=== PATIENT | female | born 1975 | race African-American/Black ===

== ENCOUNTER 2018-12-28 22:57 | Inpatient (IN) | payer OTHER ==
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
[2018-12-29] MEDS ORDERED: MAGNESIUM CITRATE 300 ML BOTTLE PO PRN (02:58)
[2018-12-29] MEDS ORDERED: MAG HYDROX/AL HYDROX/SIMETH 30 ML UNIT-DOSE CUP PO PRN (02:58)
[2018-12-29] MEDS ORDERED: MENTHOL/PHENOL 1 EACH UD MM PRN (02:58)
[2018-12-29] MEDS ORDERED: chlordiazePOXIDE HCL 25 MG CAPSULE PO ONE (02:58)
[2018-12-29] MEDS ORDERED: BISMUTH SUBSALICYLATE 524 MG/30 ML UD PO PRN (02:58)
[2018-12-29] MEDS ORDERED: ACETAMINOPHEN 325 MG TABLET (FP) PO PRN (02:58)
[2018-12-29] MEDS ORDERED: hydrOXYzine PAMOATE 25 MG CAPSULE (FP) PO PRN (02:58)
[2018-12-29] MEDS ORDERED: MAGNESIUM HYDROX 2400MG/30ML ORAL SUSPENSION 30 ML CUP PO PRN (02:58)
[2018-12-29] MEDS ORDERED: ONDANSETRON 8 MG TABLET (FP) PO PRN (03:23)
[2018-12-29] MEDS: chlordiazePOXIDE HCL 25 MG CAPSULE PO SCH ×3 (04:29→22:19)
[2018-12-29] MEDS: GABAPENTIN 100 MG CAPSULE (FP) PO SCH ×3 (06:18→22:18)
[2018-12-29] MEDS ORDERED: LEVETIRACETAM PO SCH (10:00)
[2018-12-29] MEDS ORDERED: ASCORBIC ACID PO SCH (10:00)
[2018-12-29] MEDS ORDERED: [UNRECOGNIZED DRUG - MIXTURE] TP SCH ×2 (10:00)
[2018-12-29 10:13] LABS: HEMATOCRIT 32.9 % (32.4-45.2); HEMOGLOBIN 11.2 GM/dL (10.7-15.3); MCH 33.6 pg (25.7-33.7); MCHC 33.9 g/dl (32.0-36.0); MEAN CELL VOLUME 99.1 fl (80-96); MEAN PLT VOLUME 7.6 fl (7.5-11.1); PLATELET COUNT 320 K/MM3 (134-434); RBC 3.32 M/mm3 (3.60-5.2); RDW 15.6 % (11.6-15.6); WHITE BLOOD COUNT 4.1 K/mm3 (4.0-10.0)
[2018-12-29 10:15] LABS: ALBUMIN 3.2 g/dl (3.4-5.0); ALK PHOS 67 U/L (45-117); ANION GAP 9 MMOL/L (8-16); BILIRUBIN,TOTAL 0.2 mg/dL (0.2-1); BLOOD UREA NITROGEN 6 mg/dL (7-18); CALCIUM 8.8 mg/dL (8.5-10.1); CHLORIDE 108 mmol/L (98-107); CO2 25 mmol/L (21-32); CREATININE 0.7 mg/dL (0.55-1.3); GLUCOSE,RANDOM 84 mg/dL (74-106); POTASSIUM 3.9 mmol/L (3.5-5.1); SGOT/AST 16 U/L (15-37); SGPT/ALT 14 U/L (13-61); SODIUM 142 mmol/L (136-145); TOT PROT 6.6 g/dl (6.4-8.2)
[2018-12-29] MEDS: levETIRAcetam 250 MG TABLET (FP) PO SCH ×2 (10:24→22:18)
[2018-12-29] MEDS: PRENATAL VITAMINS W/ FOLIC ACID TABLET (FP) PO SCH (10:24)
[2018-12-29] MEDS: NICOTINE 21 MG/24 HOURS TOPICAL PATCH TD SCH (10:25)
[2018-12-29] MEDS: chlordiazePOXIDE HCL 10 MG CAPSULE PO PRN ×2 (10:28→17:29)
[2018-12-29] MEDS: ACETAMINOPHEN 325 MG TABLET (FP) PO PRN ×2 (10:32→17:29)
[2018-12-29] MEDS: [UNRECOGNIZED DRUG - MIXTURE] TP SCH (10:57)
[2018-12-29] MEDS: ASCORBIC ACID 500 MG TABLET (FP) PO SCH (10:58)
[2018-12-29] MEDS: LIDOCAINE 5% TOPICAL PATCH TP SCH (10:59)
--- NOTE | 2018-12-29 12:38 | EKG ---
Test Reason : Blood Pressure : / mmHG Vent. Rate : 067 BPM Atrial Rate : 067 BPM P-R Int : 154 ms QRS Dur : 078 ms QT Int : 416 ms P-R-T Axes : 067 029 042 degrees QTc Int : 439 ms NORMAL SINUS RHYTHM WITH SINUS ARRHYTHMIA NORMAL ECG Confirmed by MD DEBORAH, FLORA ([id number]) on 12/29/2018 12:38:52 PM Referred By: DAISY BROWNING Confirmed By:FLORA CABRERA MD
[2018-12-29] MEDS: ONDANSETRON *ODT* 4 MG TABLET SL PRN ×2 (13:07→17:29)
--- NOTE | 2018-12-29 17:22 | PN ---
S CIWA - CIWA Score Nausea/Vomitin Muscle Tremors: None Anxiety: 4-Mod. Anxious/Guarded Agitation: 2 Paroxysmal Sweats: 4-Forehead w/Sweat Beads Orientation: 0-Oriented Tacttile Disturbances: 2-Mild Itch/Numbness/Burn Auditory Disturbances: 0-None Visual Disturbances: 2-Mild Sensitivity Headache: 0-None Present CIWA-Ar Total Score: 17 BHS Progress Note (SOAP) Subjective: Anxious, Nausea, Interrupted Sleep, Body Aches. Objective: PATIENT A & O X 3, OBSERVED AMBULATING ON UNIT UNASSISTED. IN NO ACUTE DISTRESS. 12/29/18 17:19 Vital Signs Temperature 98.1 F 12/29/18 13:28 Pulse Rate 80 12/29/18 13:28 Respiratory Rate 18 12/29/18 13:28 Blood Pressure 99/66 12/29/18 13:28 O2 Sat by Pulse Oximetry (%) Laboratory Tests 12/29/18 12/29/18 12/29/18 01:17 07:00 07:00 WBC 4.1 RBC 3.32 L Hgb 11.2 Hct 32.9 MCV 99.1 H MCH 33.6 MCHC 33.9 RDW 15.6 Plt Count 320 MPV 7.6 Sodium 142 Potassium 3.9 Chloride 108 H Carbon Dioxide 25 Anion Gap 9 BUN 6 L Creatinine 0.7 Creat Clearance w eGFR 91.76 Random Glucose 84 Calcium 8.8 Total Bilirubin 0.2 AST 16 ALT 14 Alkaline Phosphatase 67 Total Protein 6.6 Albumin 3.2 L POC Urine HCG, Qual Negative RPR Titer 12/29/18 07:00 WBC RBC Hgb Hct MCV MCH MCHC RDW Plt Count MPV Sodium Potassium Chloride Carbon Dioxide Anion Gap BUN Creatinine Creat Clearance w eGFR Random Glucose Calcium Total Bilirubin AST ALT Alkaline Phosphatase Total Protein Albumin POC Urine HCG, Qual RPR Titer Nonreactive LABS NOTED. Assessment: 12/29/18 17:20 WITHDRAWAL SYMPTOMS. Plan: CONTINUE DETOX. INCREASE DAILY PO FLUID / WATER INTAKE. PRN ZOFRAN SL RECOMMEDNED FOR NAUSEA. PRN TRAZODONE, 50 MG PO FOR INSOMNIA (PATIENT REPORTS POOR EFFECT FROM MELATONIN ).
[2018-12-29] MEDS: LIDOCAINE PATCH REMOVAL MC SCH (22:17)
[2018-12-29] MEDS: MINERAL OIL/PETROLAT/WATER TOPICAL CREAM 454 GM JAR TP PRN (22:18)
[2018-12-29] MEDS: THIAMINE HCL 100 MG TABLET (FP) PO SCH (22:19)
[2018-12-29] MEDS: traZODone HCL 50 MG TABLET (FP) PO PRN (22:21)
[2018-12-30] MEDS: GABAPENTIN 100 MG CAPSULE (FP) PO SCH ×3 (05:50→22:28)
[2018-12-30] MEDS: ACETAMINOPHEN 325 MG TABLET (FP) PO PRN ×3 (05:50→19:42)
[2018-12-30] MEDS: chlordiazePOXIDE 5 MG CAPSULE PO SCH ×3 (05:50→22:28)
[2018-12-30] MEDS: [UNRECOGNIZED DRUG - MIXTURE] TP SCH (10:16)
[2018-12-30] MEDS: PRENATAL VITAMINS W/ FOLIC ACID TABLET (FP) PO SCH (10:17)
[2018-12-30] MEDS: levETIRAcetam 250 MG TABLET (FP) PO SCH ×2 (10:17→22:27)
[2018-12-30] MEDS: LIDOCAINE 5% TOPICAL PATCH TP SCH (10:17)
[2018-12-30] MEDS: ASCORBIC ACID 500 MG TABLET (FP) PO SCH (10:18)
[2018-12-30] MEDS: NICOTINE 21 MG/24 HOURS TOPICAL PATCH TD SCH (10:18)
[2018-12-30] MEDS: chlordiazePOXIDE HCL 10 MG CAPSULE PO PRN (10:27)
--- NOTE | 2018-12-30 11:06 | PN ---
[facility] CIWA - CIWA Score Nausea/Vomitin-Mild Nausea/No Vomiting Muscle Tremors: 3 Anxiety: 4-Mod. Anxious/Guarded Agitation: 3 Paroxysmal Sweats: 1-Minimal Palms Moist Orientation: 1-Uncertain about Date Tacttile Disturbances: 0-None Auditory Disturbances: 0-None Visual Disturbances: 0-None Headache: 1-Very Mild CIWA-Ar Total Score: 14 S Progress Note (SOAP) Subjective: anxious report compliance with keppra medications Objective: 12/30/18 11:06 Vital Signs Temperature 97.6 F 12/30/18 09:46 Pulse Rate 106 H 12/30/18 09:46 Respiratory Rate 20 12/30/18 09:46 Blood Pressure 119/67 12/30/18 09:46 O2 Sat by Pulse Oximetry (%) Laboratory Last Values WBC 4.1 K/mm3 (4.0-10.0) 12/29/18 07:00 RBC 3.32 M/mm3 (3.60-5.2) L 12/29/18 07:00 Hgb 11.2 GM/dL (10.7-15.3) 12/29/18 07:00 Hct 32.9 % (32.4-45.2) 12/29/18 07:00 MCV 99.1 fl (80-96) H 12/29/18 07:00 MCH 33.6 pg (25.7-33.7) 12/29/18 07:00 MCHC 33.9 g/dl (32.0-36.0) 12/29/18 07:00 RDW 15.6 % (11.6-15.6) 12/29/18 07:00 Plt Count 320 K/MM3 (134-434) 12/29/18 07:00 MPV 7.6 fl (7.5-11.1) 12/29/18 07:00 Sodium 142 mmol/L (136-145) 12/29/18 07:00 Potassium 3.9 mmol/L (3.5-5.1) 12/29/18 07:00 Chloride 108 mmol/L (98-107) H 12/29/18 07:00 Carbon Dioxide 25 mmol/L (21-32) 12/29/18 07:00 Anion Gap 9 MMOL/L (8-16) 12/29/18 07:00 BUN 6 mg/dL (7-18) L 12/29/18 07:00 Creatinine 0.7 mg/dL (0.55-1.3) 12/29/18 07:00 Creat Clearance w eGFR 91.76 (>60) 12/29/18 07:00 Random Glucose 84 mg/dL (74-106) 12/29/18 07:00 Calcium 8.8 mg/dL (8.5-10.1) 12/29/18 07:00 Total Bilirubin 0.2 mg/dL (0.2-1) 12/29/18 07:00 AST 16 U/L (15-37) 12/29/18 07:00 ALT 14 U/L (13-61) 12/29/18 07:00 Alkaline Phosphatase 67 U/L (45-117) 12/29/18 07:00 Total Protein 6.6 g/dl (6.4-8.2) 12/29/18 07:00 Albumin 3.2 g/dl (3.4-5.0) L 12/29/18 07:00 POC Urine HCG, Qual Negative 12/29/18 01:17 RPR Titer Nonreactive (NONREACTIVE) 12/29/18 07:00 lab noted Assessment: 12/30/18 11:06 alcohol withdrawal sx Plan: continue detox
[2018-12-30] MEDS: NICOTINE POLACRILEX 2 MG GUM BUC PRN ×2 (13:44→19:43)
[2018-12-30] MEDS: ONDANSETRON *ODT* 4 MG TABLET SL PRN (16:13)
[2018-12-30] MEDS: MELATONIN 5 MG TABLETS PO PRN (22:27)
[2018-12-30] MEDS: THIAMINE HCL 100 MG TABLET (FP) PO SCH (22:28)
[2018-12-30] MEDS: traZODone HCL 50 MG TABLET (FP) PO PRN (22:29)
[2018-12-30] MEDS: LIDOCAINE PATCH REMOVAL MC SCH (23:09)
[2018-12-31] MEDS: chlordiazePOXIDE HCL 10 MG CAPSULE PO SCH ×3 (05:24→22:15)
[2018-12-31] MEDS: GABAPENTIN 100 MG CAPSULE (FP) PO SCH ×3 (05:24→22:16)
[2018-12-31] MEDS: ACETAMINOPHEN 325 MG TABLET (FP) PO PRN ×4 (05:24→22:18)
[2018-12-31] MEDS: levETIRAcetam 250 MG TABLET (FP) PO SCH ×2 (10:29→22:15)
[2018-12-31] MEDS: [UNRECOGNIZED DRUG - MIXTURE] TP SCH (10:29)
[2018-12-31] MEDS: ASCORBIC ACID 500 MG TABLET (FP) PO SCH (10:29)
[2018-12-31] MEDS: PRENATAL VITAMINS W/ FOLIC ACID TABLET (FP) PO SCH (10:29)
[2018-12-31] MEDS: NICOTINE 21 MG/24 HOURS TOPICAL PATCH TD SCH (10:30)
[2018-12-31] MEDS: LIDOCAINE 5% TOPICAL PATCH TP SCH (10:30)
[2018-12-31] MEDS: chlordiazePOXIDE HCL 10 MG CAPSULE PO PRN ×2 (10:30→15:47)
[2018-12-31] MEDS: MINERAL OIL/PETROLAT/WATER TOPICAL CREAM 454 GM JAR TP PRN (10:32)
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
[2018-12-31] MEDS: ONDANSETRON *ODT* 4 MG TABLET SL PRN (13:10)
[2018-12-31] MEDS: NICOTINE POLACRILEX 2 MG GUM BUC PRN (17:48)
[2018-12-31] MEDS: THIAMINE HCL 100 MG TABLET (FP) PO SCH (22:15)
[2018-12-31] MEDS: MELATONIN 5 MG TABLETS PO PRN (22:16)
[2018-12-31] MEDS: traZODone HCL 50 MG TABLET (FP) PO PRN (22:17)
[2018-12-31] MEDS: LIDOCAINE PATCH REMOVAL MC SCH (22:46)
[2019-01-01] MEDS: GABAPENTIN 100 MG CAPSULE (FP) PO SCH ×2 (05:31→13:22)
[2019-01-01] MEDS: chlordiazePOXIDE HCL 10 MG CAPSULE PO SCH (05:31)
[2019-01-01 09:18] VITALS: BP 90/60; PULSE 93; TEMP 97.4
[2019-01-01] MEDS: PRENATAL VITAMINS W/ FOLIC ACID TABLET (FP) PO SCH (10:42)
[2019-01-01] MEDS: ASCORBIC ACID 500 MG TABLET (FP) PO SCH (10:42)
[2019-01-01] MEDS: MINERAL OIL/PETROLAT/WATER TOPICAL CREAM 454 GM JAR TP PRN (10:42)
[2019-01-01] MEDS: levETIRAcetam 250 MG TABLET (FP) PO SCH (10:42)
[2019-01-01] MEDS: LIDOCAINE 5% TOPICAL PATCH TP SCH (10:43)
[2019-01-01] MEDS: NICOTINE 21 MG/24 HOURS TOPICAL PATCH TD SCH (10:43)
[2019-01-01] MEDS: [UNRECOGNIZED DRUG - MIXTURE] TP SCH (10:43)
[2019-01-01] MEDS: ACETAMINOPHEN 325 MG TABLET (FP) PO PRN (10:58)
--- NOTE | 2019-01-01 11:01 | DS ---
[facility] Detox Discharge Summary Admission Date: 12/29/18 Discharge Date: 01/01/19 - History Present History: Alcohol Dependence Pertinent Past History: Pt admitted for alcohol detox. Did well with detox protocol. Going to for rehab - Physical Exam Results Vital Signs: Vital Signs Temperature 97.4 F L 01/01/19 09:17 Pulse Rate 93 H 01/01/19 09:17 Respiratory Rate 18 01/01/19 09:17 Blood Pressure 90/60 01/01/19 09:17 O2 Sat by Pulse Oximetry (%) - Treatment Hospital Course: Detox Protocol Followed, Detoxed Safely, Responded well, Discharged Condition Good, Rehab Referral Accepted - Medication Discharge Medications: Ambulatory Orders Allantoin/Onion/Peg/Water [Mederma Gel] 1 5ml TP DAILY 12/29/18 Ascorbic Acid [Vitamin C] 1 tab PO DAILY 12/29/18 Gabapentin 1 cap PO TID 12/29/18 Ondansetron HCl [Zofran] 8 mg PO Q12H PRN 12/29/18 levETIRAcetam [Keppra -] 750 tab PO BID 12/29/18 levETIRAcetam [Keppra -] 750 mg PO BID #60 tablet 12/31/18 - AMA Did Patient Leave Against Medical Advice: No
== END 2019-01-01 13:27 | disposition other institution (70) | DRG 775 ==
LOC: YASAS 22:57 → Y3N 12-29 01:58
PROVIDERS: ADMIT Surgery; ATTEND Surgery
PROC: HZ2ZZZZ Detoxification Services for Substance Abuse Treatment (ICD-10-PCS; principal; 2018-12-29)
DX: F10.230 Alcohol dependence with withdrawal, uncomplicated (principal); F17.210 Nicotine dependence, cigarettes, uncomplicated; D64.9 Anemia, unspecified; L30.9 Dermatitis, unspecified; G40.909 Epilepsy, unspecified, not intractable, without status epilepticus; R60.0 Localized edema; T24.302D Burn of third degree of unspecified site of left lower limb, except ankle and foot, subsequent encounter; X08.8XXD Exposure to other specified smoke, fire and flames, subsequent encounter; Z94.5 Skin transplant status
CPT/HCPCS: 36415; 80053; 81025; 85027; 86593; 93005; 93010; Q0162

== ENCOUNTER 2019-01-01 13:52 | Inpatient (IN) | payer OTHER ==
[2019-01-01] MEDS ORDERED: IBUPROFEN 400 MG TABLET (FP) PO PRN (14:06)
[2019-01-01] MEDS ORDERED: MAG HYDROX/AL HYDROX/SIMETH 30 ML UNIT-DOSE CUP PO PRN (14:06)
[2019-01-01] MEDS ORDERED: MENTHOL/PHENOL 1 EACH UD MM PRN (14:06)
[2019-01-01] MEDS ORDERED: MAGNESIUM HYDROX 2400MG/30ML ORAL SUSPENSION 30 ML CUP PO PRN (14:06)
[2019-01-01] MEDS ORDERED: LOPERAMIDE HCL 2 MG CAPSULE PO PRN (14:06)
[2019-01-01] MEDS ORDERED: MAGNESIUM CITRATE 300 ML BOTTLE PO PRN (14:06)
--- NOTE | 2019-01-01 14:06 | HP ---
[facility] Re[facility] Assess/Revision - Admission History Admitted to Rehab from[facility] - Findings Detox History & Physical reviewed: Yes Concur with findings: Yes Inpatient Rehab Admission - Rehab Decision to Admit Inpatient rehab admission?: Yes - Initial Determination Are CD services needed?: Yes Free of communicable disease: Yes Not in need of hospitalization: Yes - Rehab Admission Criteria Previous failed treatment: Yes Poor recovery environment: Yes Comorbidities: Yes Lacks judgement: Yes Patient is meeting Inpatient Rehab admission criteria:: Yes
[2019-01-01] MEDS ORDERED: ONDANSETRON *ODT* 4 MG TABLET SL PRN (14:07)
[2019-01-01] MEDS ORDERED: COLLOIDAL OATMEAL 1 BAR EACH TP PRN (15:55)
[2019-01-01] MEDS: THIAMINE HCL 100 MG TABLET (FP) PO SCH (21:39)
[2019-01-01] MEDS: traZODone HCL 50 MG TABLET (FP) PO SCH (21:40)
[2019-01-01] MEDS: GABAPENTIN 100 MG CAPSULE (FP) PO SCH (21:40)
[2019-01-01] MEDS: hydrOXYzine PAMOATE 25 MG CAPSULE (FP) PO PRN (21:40)
[2019-01-01] MEDS: [UNRECOGNIZED DRUG - OTHER] PO SCH (21:41)
[2019-01-01] MEDS: SODIUM CHLORIDE 1000 MG PO SCH (21:41)
[2019-01-01] MEDS: LIDOCAINE PATCH REMOVAL MC SCH (21:41)
[2019-01-01] MEDS: ACETAMINOPHEN 325 MG TABLET (FP) PO PRN (21:42)
[2019-01-01] MEDS ORDERED: GABAPENTIN 100 MG CAPSULE (FP) PO SCH (22:00)
[2019-01-01] MEDS ORDERED: levETIRAcetam 250 MG TABLET (FP) PO SCH (22:00)
[2019-01-02] MEDS: GABAPENTIN 100 MG CAPSULE (FP) PO SCH ×3 (06:09→21:42)
[2019-01-02] MEDS: hydrOXYzine PAMOATE 25 MG CAPSULE (FP) PO PRN ×3 (06:10→14:55)
[2019-01-02] MEDS: ACETAMINOPHEN 325 MG TABLET (FP) PO PRN ×4 (06:11→21:42)
[2019-01-02] MEDS ORDERED: PT OWN MED DRAWER 7, Y5N ONE (08:51)
[2019-01-02] MEDS ORDERED: ASCORBIC ACID PO SCH (10:00)
[2019-01-02] MEDS: SODIUM CHLORIDE 1000 MG PO SCH (10:13)
[2019-01-02] MEDS: [UNRECOGNIZED DRUG - OTHER] PO SCH (10:13)
[2019-01-02] MEDS: PRENATAL VITAMINS W/ FOLIC ACID TABLET (FP) PO SCH (10:13)
[2019-01-02] MEDS: ASCORBIC ACID 500 MG TABLET (FP) PO SCH (10:13)
[2019-01-02] MEDS: [UNRECOGNIZED DRUG - MIXTURE] TP SCH (10:15)
[2019-01-02] MEDS: LIDOCAINE 5% TOPICAL PATCH TP SCH (10:15)
[2019-01-02] MEDS: NICOTINE POLACRILEX 2 MG GUM BUC PRN (14:57)
[2019-01-02] MEDS: traZODone HCL 50 MG TABLET (FP) PO SCH (21:41)
[2019-01-02] MEDS: THIAMINE HCL 100 MG TABLET (FP) PO SCH (21:41)
[2019-01-02] MEDS: MELATONIN 5 MG TABLETS PO PRN (21:41)
[2019-01-02] MEDS: LIDOCAINE PATCH REMOVAL MC SCH (21:42)
[2019-01-03] MEDS: GABAPENTIN 100 MG CAPSULE (FP) PO SCH ×3 (06:41→21:24)
[2019-01-03] MEDS: hydrOXYzine PAMOATE 25 MG CAPSULE (FP) PO PRN ×4 (06:43→21:24)
[2019-01-03] MEDS: ACETAMINOPHEN 325 MG TABLET (FP) PO PRN ×2 (06:43→16:38)
[2019-01-03] MEDS: ASCORBIC ACID 500 MG TABLET (FP) PO SCH (09:56)
[2019-01-03] MEDS: [UNRECOGNIZED DRUG - MIXTURE] TP SCH (09:56)
[2019-01-03] MEDS: PRENATAL VITAMINS W/ FOLIC ACID TABLET (FP) PO SCH (09:56)
[2019-01-03] MEDS: LIDOCAINE 5% TOPICAL PATCH TP SCH (09:56)
[2019-01-03] MEDS: [UNRECOGNIZED DRUG - OTHER] PO SCH (09:57)
[2019-01-03] MEDS: SODIUM CHLORIDE 1000 MG PO SCH (09:57)
[2019-01-03] MEDS: NICOTINE POLACRILEX 2 MG GUM BUC PRN ×3 (09:59→21:25)
[2019-01-03] MEDS: traZODone HCL 50 MG TABLET (FP) PO SCH (21:23)
[2019-01-03] MEDS: MELATONIN 5 MG TABLETS PO PRN (21:23)
[2019-01-03] MEDS: THIAMINE HCL 100 MG TABLET (FP) PO SCH (21:25)
[2019-01-03] MEDS: LIDOCAINE PATCH REMOVAL MC SCH (21:45)
[2019-01-04] MEDS: ACETAMINOPHEN 325 MG TABLET (FP) PO PRN ×2 (06:12→15:15)
[2019-01-04] MEDS: GABAPENTIN 100 MG CAPSULE (FP) PO SCH ×3 (06:12→21:35)
[2019-01-04] MEDS: hydrOXYzine PAMOATE 25 MG CAPSULE (FP) PO PRN ×3 (06:12→21:35)
[2019-01-04] MEDS: PRENATAL VITAMINS W/ FOLIC ACID TABLET (FP) PO SCH (09:53)
[2019-01-04] MEDS: SODIUM CHLORIDE 1000 MG PO SCH (09:53)
[2019-01-04] MEDS: [UNRECOGNIZED DRUG - OTHER] PO SCH (09:53)
[2019-01-04] MEDS: [UNRECOGNIZED DRUG - MIXTURE] TP SCH (09:54)
[2019-01-04] MEDS: LIDOCAINE 5% TOPICAL PATCH TP SCH ×2 (09:55→12:05)
[2019-01-04] MEDS: ASCORBIC ACID 500 MG TABLET (FP) PO SCH (09:56)
[2019-01-04] MEDS ORDERED: PT OWN MED DRAWER 7, Y5N ONE (15:18)
[2019-01-04] MEDS: THIAMINE HCL 100 MG TABLET (FP) PO SCH (21:35)
[2019-01-04] MEDS: MELATONIN 5 MG TABLETS PO PRN (21:35)
[2019-01-04] MEDS: LIDOCAINE PATCH REMOVAL MC SCH (21:37)
[2019-01-04] MEDS: traZODone HCL 50 MG TABLET (FP) PO SCH (21:37)
[2019-01-04] MEDS ORDERED: levETIRAcetam 500 MG TABLET (FP) PO ONE (22:57)
[2019-01-04] MEDS ORDERED: levETIRAcetam 250 MG TABLET (FP) PO ONE (22:57)
[2019-01-05] MEDS: ACETAMINOPHEN 325 MG TABLET (FP) PO PRN ×3 (06:12→21:30)
[2019-01-05] MEDS: GABAPENTIN 100 MG CAPSULE (FP) PO SCH ×3 (06:13→21:29)
[2019-01-05] MEDS: hydrOXYzine PAMOATE 25 MG CAPSULE (FP) PO PRN ×3 (06:13→21:30)
[2019-01-05] MEDS ORDERED: PT OWN MED DRAWER 7, Y5N ONE ×2 (08:58→20:24)
[2019-01-05] MEDS: ASCORBIC ACID 500 MG TABLET (FP) PO SCH (10:02)
[2019-01-05] MEDS: PRENATAL VITAMINS W/ FOLIC ACID TABLET (FP) PO SCH (10:02)
[2019-01-05] MEDS: [UNRECOGNIZED DRUG - MIXTURE] TP SCH (10:02)
[2019-01-05] MEDS: [UNRECOGNIZED DRUG - OTHER] PO SCH (10:02)
[2019-01-05] MEDS: SODIUM CHLORIDE 1000 MG PO SCH (10:02)
[2019-01-05] MEDS: LIDOCAINE 5% TOPICAL PATCH TP SCH (10:03)
[2019-01-05] MEDS: COLLOIDAL OATMEAL 1 BAR EACH TP SCH (10:05)
[2019-01-05] MEDS: NICOTINE 21 MG/24 HOURS TOPICAL PATCH TD SCH (10:08)
[2019-01-05] MEDS: NICOTINE POLACRILEX 2 MG GUM BUC PRN (14:36)
[2019-01-05] MEDS: traZODone HCL 50 MG TABLET (FP) PO SCH (21:29)
[2019-01-05] MEDS: THIAMINE HCL 100 MG TABLET (FP) PO SCH (21:29)
[2019-01-05] MEDS: MELATONIN 5 MG TABLETS PO PRN (21:29)
[2019-01-05] MEDS: LIDOCAINE PATCH REMOVAL MC SCH (21:31)
[2019-01-06] MEDS: hydrOXYzine PAMOATE 25 MG CAPSULE (FP) PO PRN ×3 (06:36→21:26)
[2019-01-06] MEDS: GABAPENTIN 100 MG CAPSULE (FP) PO SCH ×3 (06:37→21:27)
[2019-01-06] MEDS: ACETAMINOPHEN 325 MG TABLET (FP) PO PRN ×3 (06:37→21:28)
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
[2019-01-06] MEDS ORDERED: PT OWN MED DRAWER 7, Y5N ONE ×3 (09:01→19:24)
[2019-01-06] MEDS: SODIUM CHLORIDE 1000 MG PO SCH (09:50)
[2019-01-06] MEDS: [UNRECOGNIZED DRUG - MIXTURE] TP SCH (09:50)
[2019-01-06] MEDS: [UNRECOGNIZED DRUG - OTHER] PO SCH (09:50)
[2019-01-06] MEDS: PRENATAL VITAMINS W/ FOLIC ACID TABLET (FP) PO SCH (09:50)
[2019-01-06] MEDS: COLLOIDAL OATMEAL 1 BAR EACH TP SCH (09:51)
[2019-01-06] MEDS: LIDOCAINE 5% TOPICAL PATCH TP SCH (09:51)
[2019-01-06] MEDS: NICOTINE 21 MG/24 HOURS TOPICAL PATCH TD SCH (09:53)
[2019-01-06] MEDS: ASCORBIC ACID 500 MG TABLET (FP) PO SCH (09:53)
[2019-01-06] MEDS: NICOTINE POLACRILEX 2 MG GUM BUC PRN ×2 (09:56→14:31)
[2019-01-06] MEDS: THIAMINE HCL 100 MG TABLET (FP) PO SCH (21:25)
[2019-01-06] MEDS: MELATONIN 5 MG TABLETS PO PRN (21:26)
[2019-01-06] MEDS: LIDOCAINE PATCH REMOVAL MC SCH (21:27)
[2019-01-06] MEDS: MICONAZOLE NITRATE 100 MG SUPP SUPP.VAG PV SCH (21:27)
[2019-01-06] MEDS: traZODone HCL 100 MG TABLET (FP) PO SCH (21:28)
[2019-01-07] MEDS: hydrOXYzine PAMOATE 25 MG CAPSULE (FP) PO PRN ×2 (06:20→14:04)
[2019-01-07] MEDS: GABAPENTIN 100 MG CAPSULE (FP) PO SCH ×3 (06:21→21:31)
[2019-01-07] MEDS: ACETAMINOPHEN 325 MG TABLET (FP) PO PRN ×3 (06:21→21:34)
[2019-01-07] MEDS ORDERED: PT OWN MED DRAWER 7, Y5N ONE ×3 (09:01→21:33)
[2019-01-07] MEDS: [UNRECOGNIZED DRUG - OTHER] PO SCH (10:16)
[2019-01-07] MEDS: PRENATAL VITAMINS W/ FOLIC ACID TABLET (FP) PO SCH (10:16)
[2019-01-07] MEDS: SODIUM CHLORIDE 1000 MG PO SCH (10:16)
[2019-01-07] MEDS: LIDOCAINE 5% TOPICAL PATCH TP SCH (10:16)
[2019-01-07] MEDS: COLLOIDAL OATMEAL 1 BAR EACH TP SCH (10:16)
[2019-01-07] MEDS: [UNRECOGNIZED DRUG - MIXTURE] TP SCH (10:16)
[2019-01-07] MEDS: ASCORBIC ACID 500 MG TABLET (FP) PO SCH (10:16)
[2019-01-07] MEDS: NICOTINE 21 MG/24 HOURS TOPICAL PATCH TD SCH (10:17)
[2019-01-07] MEDS: traZODone HCL 100 MG TABLET (FP) PO SCH (21:31)
[2019-01-07] MEDS: LIDOCAINE PATCH REMOVAL MC SCH (21:31)
[2019-01-07] MEDS: MELATONIN 5 MG TABLETS PO PRN (21:31)
[2019-01-07] MEDS: THIAMINE HCL 100 MG TABLET (FP) PO SCH (21:31)
[2019-01-07] MEDS: MICONAZOLE NITRATE 100 MG SUPP SUPP.VAG PV SCH (21:33)
[2019-01-08] MEDS: GABAPENTIN 100 MG CAPSULE (FP) PO SCH ×3 (06:09→21:17)
[2019-01-08] MEDS: hydrOXYzine PAMOATE 25 MG CAPSULE (FP) PO PRN ×4 (06:09→21:19)
[2019-01-08] MEDS: ACETAMINOPHEN 325 MG TABLET (FP) PO PRN ×4 (06:10→21:19)
[2019-01-08] MEDS ORDERED: PT OWN MED DRAWER 7, Y5N ONE ×2 (08:44→19:14)
[2019-01-08] MEDS: [UNRECOGNIZED DRUG - OTHER] PO SCH (10:08)
[2019-01-08] MEDS: ASCORBIC ACID 500 MG TABLET (FP) PO SCH (10:08)
[2019-01-08] MEDS: NICOTINE 21 MG/24 HOURS TOPICAL PATCH TD SCH (10:08)
[2019-01-08] MEDS: AMINO ACIDS/PROTEIN HYDROLYS 30 ML LIQUID.PKT PO SCH (10:08)
[2019-01-08] MEDS: PRENATAL VITAMINS W/ FOLIC ACID TABLET (FP) PO SCH (10:08)
[2019-01-08] MEDS: SODIUM CHLORIDE 1000 MG PO SCH (10:08)
[2019-01-08] MEDS: COLLOIDAL OATMEAL 1 BAR EACH TP SCH (10:09)
[2019-01-08] MEDS: LIDOCAINE 5% TOPICAL PATCH TP SCH (10:09)
[2019-01-08] MEDS: [UNRECOGNIZED DRUG - MIXTURE] TP SCH (10:09)
[2019-01-08] MEDS: THIAMINE HCL 100 MG TABLET (FP) PO SCH (21:17)
[2019-01-08] MEDS: MELATONIN 5 MG TABLETS PO PRN (21:17)
[2019-01-08] MEDS: LIDOCAINE PATCH REMOVAL MC SCH (21:18)
[2019-01-08] MEDS: traZODone HCL 100 MG TABLET (FP) PO SCH (21:18)
[2019-01-08] MEDS: MICONAZOLE NITRATE 100 MG SUPP SUPP.VAG PV SCH (21:18)
[2019-01-09] MEDS: hydrOXYzine PAMOATE 25 MG CAPSULE (FP) PO PRN ×4 (06:27→21:26)
[2019-01-09] MEDS: GABAPENTIN 100 MG CAPSULE (FP) PO SCH ×3 (06:27→21:26)
[2019-01-09] MEDS: ACETAMINOPHEN 325 MG TABLET (FP) PO PRN ×3 (06:27→21:26)
[2019-01-09] MEDS ORDERED: PT OWN MED DRAWER 7, Y5N ONE ×4 (08:40→19:22)
[2019-01-09] MEDS: SODIUM CHLORIDE 1000 MG PO SCH (09:49)
[2019-01-09] MEDS: NICOTINE 21 MG/24 HOURS TOPICAL PATCH TD SCH (09:49)
[2019-01-09] MEDS: [UNRECOGNIZED DRUG - OTHER] PO SCH (09:49)
[2019-01-09] MEDS: ASCORBIC ACID 500 MG TABLET (FP) PO SCH (09:49)
[2019-01-09] MEDS: PRENATAL VITAMINS W/ FOLIC ACID TABLET (FP) PO SCH (09:49)
[2019-01-09] MEDS: COLLOIDAL OATMEAL 1 BAR EACH TP SCH (09:49)
[2019-01-09] MEDS: AMINO ACIDS/PROTEIN HYDROLYS 30 ML LIQUID.PKT PO SCH (09:49)
[2019-01-09] MEDS: [UNRECOGNIZED DRUG - MIXTURE] TP SCH (09:50)
[2019-01-09] MEDS: LIDOCAINE 5% TOPICAL PATCH TP SCH (09:53)
[2019-01-09] MEDS: THIAMINE HCL 100 MG TABLET (FP) PO SCH (21:25)
[2019-01-09] MEDS: MELATONIN 5 MG TABLETS PO PRN (21:26)
[2019-01-09] MEDS: traZODone HCL 100 MG TABLET (FP) PO SCH (21:26)
[2019-01-09] MEDS: MICONAZOLE NITRATE 100 MG SUPP SUPP.VAG PV SCH (21:27)
[2019-01-09] MEDS: LIDOCAINE PATCH REMOVAL MC SCH (21:27)
[2019-01-10] MEDS: ACETAMINOPHEN 325 MG TABLET (FP) PO PRN ×3 (06:15→21:29)
[2019-01-10] MEDS: GABAPENTIN 100 MG CAPSULE (FP) PO SCH ×3 (06:15→21:29)
[2019-01-10] MEDS: hydrOXYzine PAMOATE 25 MG CAPSULE (FP) PO PRN ×3 (06:15→21:29)
[2019-01-10] MEDS ORDERED: PT OWN MED DRAWER 7, Y5N ONE ×3 (09:01→19:31)
[2019-01-10] MEDS: LIDOCAINE 5% TOPICAL PATCH TP SCH (09:46)
[2019-01-10] MEDS: [UNRECOGNIZED DRUG - MIXTURE] TP SCH (09:46)
[2019-01-10] MEDS: AMINO ACIDS/PROTEIN HYDROLYS 30 ML LIQUID.PKT PO SCH (09:46)
[2019-01-10] MEDS: SODIUM CHLORIDE 1000 MG PO SCH (09:47)
[2019-01-10] MEDS: NICOTINE 21 MG/24 HOURS TOPICAL PATCH TD SCH (09:47)
[2019-01-10] MEDS: ASCORBIC ACID 500 MG TABLET (FP) PO SCH (09:47)
[2019-01-10] MEDS: [UNRECOGNIZED DRUG - OTHER] PO SCH (09:47)
[2019-01-10] MEDS: PRENATAL VITAMINS W/ FOLIC ACID TABLET (FP) PO SCH (09:47)
[2019-01-10] MEDS: COLLOIDAL OATMEAL 1 BAR EACH TP SCH (09:48)
[2019-01-10] MEDS: THIAMINE HCL 100 MG TABLET (FP) PO SCH (21:28)
[2019-01-10] MEDS: MELATONIN 5 MG TABLETS PO PRN (21:28)
[2019-01-10] MEDS: traZODone HCL 100 MG TABLET (FP) PO SCH (21:29)
[2019-01-10] MEDS: LIDOCAINE PATCH REMOVAL MC SCH (21:31)
[2019-01-10] MEDS: MICONAZOLE NITRATE 100 MG SUPP SUPP.VAG PV SCH (21:31)
[2019-01-11] MEDS: GABAPENTIN 100 MG CAPSULE (FP) PO SCH ×3 (06:03→21:19)
[2019-01-11] MEDS: hydrOXYzine PAMOATE 25 MG CAPSULE (FP) PO PRN ×2 (06:03→14:14)
[2019-01-11] MEDS: ACETAMINOPHEN 325 MG TABLET (FP) PO PRN ×3 (06:03→21:18)
[2019-01-11] MEDS: guaiFENesin 200 MG/10 ML 10 ML UNIT-DOSE CUPS PO PRN ×3 (06:04→21:18)
[2019-01-11] MEDS ORDERED: PT OWN MED DRAWER 7, Y5N ONE ×2 (08:52→14:22)
[2019-01-11] MEDS: NICOTINE 21 MG/24 HOURS TOPICAL PATCH TD SCH (09:59)
[2019-01-11] MEDS: [UNRECOGNIZED DRUG - OTHER] PO SCH (09:59)
[2019-01-11] MEDS: PRENATAL VITAMINS W/ FOLIC ACID TABLET (FP) PO SCH (09:59)
[2019-01-11] MEDS: AMINO ACIDS/PROTEIN HYDROLYS 30 ML LIQUID.PKT PO SCH (09:59)
[2019-01-11] MEDS: ASCORBIC ACID 500 MG TABLET (FP) PO SCH (09:59)
[2019-01-11] MEDS: SODIUM CHLORIDE 1000 MG PO SCH (09:59)
[2019-01-11] MEDS: LIDOCAINE 5% TOPICAL PATCH TP SCH (09:59)
[2019-01-11] MEDS: COLLOIDAL OATMEAL 1 BAR EACH TP SCH (10:00)
[2019-01-11] MEDS: [UNRECOGNIZED DRUG - MIXTURE] TP SCH (10:00)
[2019-01-11] MEDS ORDERED: levETIRAcetam 250 MG TABLET (FP) PO ONE (20:48)
[2019-01-11] MEDS ORDERED: levETIRAcetam 500 MG TABLET (FP) PO ONE (20:49)
[2019-01-11] MEDS: THIAMINE HCL 100 MG TABLET (FP) PO SCH (21:18)
[2019-01-11] MEDS: MELATONIN 5 MG TABLETS PO PRN (21:18)
[2019-01-11] MEDS: traZODone HCL 100 MG TABLET (FP) PO SCH (21:19)
[2019-01-11] MEDS: MICONAZOLE NITRATE 100 MG SUPP SUPP.VAG PV SCH (21:20)
[2019-01-11] MEDS: LIDOCAINE PATCH REMOVAL MC SCH (21:21)
[2019-01-12] MEDS: hydrOXYzine PAMOATE 25 MG CAPSULE (FP) PO PRN ×3 (06:07→21:21)
[2019-01-12] MEDS: GABAPENTIN 100 MG CAPSULE (FP) PO SCH ×3 (06:07→21:24)
[2019-01-12] MEDS: ACETAMINOPHEN 325 MG TABLET (FP) PO PRN ×3 (06:07→21:22)
[2019-01-12] MEDS: guaiFENesin 200 MG/10 ML 10 ML UNIT-DOSE CUPS PO PRN ×3 (06:07→21:24)
[2019-01-12] MEDS: P-EPHED 60MG/TRIPROLIDI 2.5MG TABLET PO PRN ×3 (06:07→21:24)
[2019-01-12] MEDS ORDERED: PT OWN MED DRAWER 7, Y5N ONE ×3 (09:09→19:39)
[2019-01-12] MEDS: [UNRECOGNIZED DRUG - MIXTURE] TP SCH (09:52)
[2019-01-12] MEDS: AMINO ACIDS/PROTEIN HYDROLYS 30 ML LIQUID.PKT PO SCH (09:52)
[2019-01-12] MEDS: SODIUM CHLORIDE 1000 MG PO SCH (09:53)
[2019-01-12] MEDS: ASCORBIC ACID 500 MG TABLET (FP) PO SCH (09:53)
[2019-01-12] MEDS: COLLOIDAL OATMEAL 1 BAR EACH TP SCH (09:53)
[2019-01-12] MEDS: NICOTINE 21 MG/24 HOURS TOPICAL PATCH TD SCH (09:53)
[2019-01-12] MEDS: LIDOCAINE 5% TOPICAL PATCH TP SCH (09:53)
[2019-01-12] MEDS: [UNRECOGNIZED DRUG - OTHER] PO SCH (09:53)
[2019-01-12] MEDS: PRENATAL VITAMINS W/ FOLIC ACID TABLET (FP) PO SCH (09:54)
[2019-01-12] MEDS: traZODone HCL 100 MG TABLET (FP) PO SCH (21:21)
[2019-01-12] MEDS: THIAMINE HCL 100 MG TABLET (FP) PO SCH (21:21)
[2019-01-12] MEDS: MICONAZOLE NITRATE 100 MG SUPP SUPP.VAG PV SCH (21:21)
[2019-01-12] MEDS: LIDOCAINE PATCH REMOVAL MC SCH (21:45)
[2019-01-13] MEDS: hydrOXYzine PAMOATE 25 MG CAPSULE (FP) PO PRN ×3 (06:10→21:28)
[2019-01-13] MEDS: guaiFENesin 200 MG/10 ML 10 ML UNIT-DOSE CUPS PO PRN ×2 (06:10→21:28)
[2019-01-13] MEDS: GABAPENTIN 100 MG CAPSULE (FP) PO SCH ×3 (06:10→21:28)
[2019-01-13] MEDS: P-EPHED 60MG/TRIPROLIDI 2.5MG TABLET PO PRN ×2 (06:11→21:29)
[2019-01-13] MEDS: ACETAMINOPHEN 325 MG TABLET (FP) PO PRN ×3 (06:11→21:30)
[2019-01-13] MEDS ORDERED: PT OWN MED DRAWER 7, Y5N ONE (08:51)
[2019-01-13] MEDS: NICOTINE 21 MG/24 HOURS TOPICAL PATCH TD SCH (09:53)
[2019-01-13] MEDS: PRENATAL VITAMINS W/ FOLIC ACID TABLET (FP) PO SCH (09:53)
[2019-01-13] MEDS: AMINO ACIDS/PROTEIN HYDROLYS 30 ML LIQUID.PKT PO SCH (09:53)
[2019-01-13] MEDS: [UNRECOGNIZED DRUG - MIXTURE] TP SCH (09:53)
[2019-01-13] MEDS: [UNRECOGNIZED DRUG - OTHER] PO SCH (09:53)
[2019-01-13] MEDS: SODIUM CHLORIDE 1000 MG PO SCH (09:53)
[2019-01-13] MEDS: LIDOCAINE 5% TOPICAL PATCH TP SCH (09:54)
[2019-01-13] MEDS: COLLOIDAL OATMEAL 1 BAR EACH TP SCH (09:54)
[2019-01-13] MEDS: ASCORBIC ACID 500 MG TABLET (FP) PO SCH (09:54)
[2019-01-13] MEDS: THIAMINE HCL 100 MG TABLET (FP) PO SCH (21:27)
[2019-01-13] MEDS: MICONAZOLE NITRATE 100 MG SUPP SUPP.VAG PV SCH (21:28)
[2019-01-13] MEDS: traZODone HCL 100 MG TABLET (FP) PO SCH (21:29)
[2019-01-13] MEDS: LIDOCAINE PATCH REMOVAL MC SCH (21:29)
[2019-01-14] MEDS: GABAPENTIN 100 MG CAPSULE (FP) PO SCH ×3 (06:14→21:19)
[2019-01-14] MEDS: hydrOXYzine PAMOATE 25 MG CAPSULE (FP) PO PRN ×4 (06:14→21:19)
[2019-01-14] MEDS: ACETAMINOPHEN 325 MG TABLET (FP) PO PRN ×2 (06:14→14:02)
[2019-01-14] MEDS ORDERED: PT OWN MED DRAWER 7, Y5N ONE ×2 (08:50→19:45)
[2019-01-14] MEDS: [UNRECOGNIZED DRUG - OTHER] PO SCH (09:00)
[2019-01-14] MEDS: SODIUM CHLORIDE 1000 MG PO SCH (09:00)
[2019-01-14] MEDS: [UNRECOGNIZED DRUG - MIXTURE] TP SCH (09:40)
[2019-01-14] MEDS: LIDOCAINE 5% TOPICAL PATCH TP SCH (09:40)
[2019-01-14] MEDS: AMINO ACIDS/PROTEIN HYDROLYS 30 ML LIQUID.PKT PO SCH (09:40)
[2019-01-14] MEDS: PRENATAL VITAMINS W/ FOLIC ACID TABLET (FP) PO SCH (09:40)
[2019-01-14] MEDS: NICOTINE 21 MG/24 HOURS TOPICAL PATCH TD SCH (09:40)
[2019-01-14] MEDS: ASCORBIC ACID 500 MG TABLET (FP) PO SCH (09:40)
[2019-01-14] MEDS: NICOTINE POLACRILEX 2 MG GUM BUC PRN (09:44)
[2019-01-14] MEDS: COLLOIDAL OATMEAL 1 BAR EACH TP SCH (10:04)
--- NOTE | 2019-01-14 10:04 | PN ---
S Progress Note (SOAP) Subjective: Client for discharge tomorrow, Objective: A+O x3, CN2-12 intact; no neurological deficits noted. Lungs clear, Heart rate regular, Abd soft, non-tender, non-distended. 01/14/19 10:03 Vital Signs (72 hours) 01/12/19 01/12/19 01/12/19 00:30 03:30 06:57 Temperature 99.1 F Pulse Rate 101 H Respiratory 18 18 18 Rate Blood Pressure 105/67 01/13/19 01/13/19 01/13/19 00:30 03:30 06:47 Temperature 98.1 F Pulse Rate 85 Respiratory 18 20 18 Rate Blood Pressure 115/68 01/14/19 01/14/19 01/14/19 00:30 03:30 06:57 Temperature 97.8 F Pulse Rate 75 Respiratory 18 18 18 Rate Blood Pressure 100/61 Assessment: Medically stable for discharge Discharge dx: Anemia, chronic Hx of Seizures, chronic Hx of bah, chronic ETOH dependence, chronic 01/14/19 10:05 Plan: Patient will be going to [facility] for after care. Prescriptions transmitted to [facility].
--- NOTE | 2019-01-14 13:17 | PN ---
[facility] Progress Note Note: Patient is scheduled for discharge tomorrow. Script for Trazadone 100mg/hs will be electronically transmitted to [facility] at [address] [place] [id number]
[2019-01-14] MEDS: THIAMINE HCL 100 MG TABLET (FP) PO SCH (21:18)
[2019-01-14] MEDS: guaiFENesin 200 MG/10 ML 10 ML UNIT-DOSE CUPS PO PRN (21:18)
[2019-01-14] MEDS: traZODone HCL 100 MG TABLET (FP) PO SCH (21:19)
[2019-01-14] MEDS: LIDOCAINE PATCH REMOVAL MC SCH (21:20)
[2019-01-14] MEDS: MICONAZOLE NITRATE 100 MG SUPP SUPP.VAG PV SCH (22:31)
[2019-01-15] MEDS: GABAPENTIN 100 MG CAPSULE (FP) PO SCH (06:22)
[2019-01-15] MEDS: ACETAMINOPHEN 325 MG TABLET (FP) PO PRN (06:22)
[2019-01-15] MEDS: hydrOXYzine PAMOATE 25 MG CAPSULE (FP) PO PRN (06:22)
[2019-01-15 06:55] VITALS: BP 98/69; PULSE 74; TEMP 98.2
[2019-01-15] MEDS: guaiFENesin 200 MG/10 ML 10 ML UNIT-DOSE CUPS PO PRN (07:40)
[2019-01-15] MEDS: P-EPHED 60MG/TRIPROLIDI 2.5MG TABLET PO PRN (07:40)
[2019-01-15] MEDS ORDERED: PT OWN MED DRAWER 7, Y5N ONE ×2 (10:11→10:31)
[2019-01-15] MEDS: [UNRECOGNIZED DRUG - OTHER] PO SCH (10:12)
[2019-01-15] MEDS: SODIUM CHLORIDE 1000 MG PO SCH (10:12)
[2019-01-15] MEDS: LIDOCAINE 5% TOPICAL PATCH TP SCH (10:13)
[2019-01-15] MEDS: PRENATAL VITAMINS W/ FOLIC ACID TABLET (FP) PO SCH (10:14)
[2019-01-15] MEDS: AMINO ACIDS/PROTEIN HYDROLYS 30 ML LIQUID.PKT PO SCH (10:14)
[2019-01-15] MEDS: NICOTINE 21 MG/24 HOURS TOPICAL PATCH TD SCH (10:14)
[2019-01-15] MEDS: ASCORBIC ACID 500 MG TABLET (FP) PO SCH (10:16)
[2019-01-15] MEDS: [UNRECOGNIZED DRUG - MIXTURE] TP SCH (10:18)
[2019-01-15] MEDS: COLLOIDAL OATMEAL 1 BAR EACH TP SCH (10:45)
== END 2019-01-15 10:30 | disposition home or self-care (01) | DRG 772 ==
LOC: YASAS 13:52 → Y3W 13:53
PROVIDERS: ADMIT Neuromusculoskeletal Medicine & OMM; ATTEND Neuromusculoskeletal Medicine & OMM
PROC: HZ42ZZZ Group Counseling for Substance Abuse Treatment, Cognitive-Behavioral (ICD-10-PCS; principal; 2019-01-01)
DX: F10.230 Alcohol dependence with withdrawal, uncomplicated (principal); F10.282 Alcohol dependence with alcohol-induced sleep disorder; F17.210 Nicotine dependence, cigarettes, uncomplicated; F34.1 Dysthymic disorder; D50.9 Iron deficiency anemia, unspecified; L30.9 Dermatitis, unspecified; Z98.84 Bariatric surgery status; Z86.69 Personal history of other diseases of the nervous system and sense organs; Z88.2 Allergy status to sulfonamides; Z91.013 Allergy to seafood